=== PATIENT | female | born 1985 | race Caucasian/White ===

== ENCOUNTER 2016-09-08 08:31 | Emergency (ER) | payer BC ==
--- NOTE | 2016-09-08 10:07 | EDDOCDS ---
Nurse's Notes [facility] Name: Roxie Mendosa Age: 31 yrs Sex: Female : 1985 Arrival Date: 09/08/2016 Time: 08:31 Bed TR7 Private MD: Melody Leach Diagnosis: Nondisplaced fracture of shaft of fifth metacarpal bone, left hand Presentation: 09/08 09:01 Presenting complaint: Patient states: injured left hand yesterday - fell on hand while j walking up stairs. today c/o pain in hand - worst over 4th and 5th finger. denies other injuries. Adult Sepsis Screening: The patient does not have new or worsening altered mentation. Patient's respiratory rate is less than 22. Systolic blood pressure is greater than 100. Patient has a qSOFA score of 0- Negative Sepsis Screen. Suicide/Homicide risk assessment- the patient denies having any suicidal and/or homicidal ideations and does not present with any other emotional, behavioral or mental health complaints. 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 Transition of care: patient was not received from another setting of care. 09:01 Acuity: DARYL Level 4 [facility] 09:01 Method Of Arrival: Walkin/Carried/Asstd [facility] Triage Assessment: 09:04 General: Appears in no apparent distress, comfortable, Behavior is appropriate for age, bcj cooperative. Pain: Location: left hand Pain currently is 10 out of 10 on a pain scale. HIV screening NA for this visit Offered previously. Musculoskeletal: Circulation, motion, and sensation intact Capillary refill < 3 seconds in left fingers. 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 Protonix 40 mg Oral TbEC 1 tab once daily - PMHx: GERD; - PSHx: none; - Social history: Smoking status: Patient uses tobacco products, light tobacco smoker. No barriers to communication noted, The patient speaks fluent Syriac, Speaks appropriately for age. - Family history: Not pertinent. - : The pt / caregiver states he / she is not on anticoagulants. Home medication list is obtained from the patient. - Exposure Risk Screening:: None identified. Screenin:48 Screening information is obtained from the patient. Primary language is Syriac. Fall jam1 risk: No risks identified. Assistance ADL's: requires no assistance with activities of daily living. Abuse/DV Screen: The patient / caregiver reports he/she is: not in a situation that causes fear, pain or injury. Nutritional screening: No deficits noted. Exposure Risk Screening: None identified. Advance Directives: Currently, there is no health care proxy. There is no active DNR order. There is no living will. There is no Power of Bleaching Machine Operator. Advance directive information has not previously been placed in an [facility] medical record. Further advance directive information is declined. home support is adequate. Assessment: 09:48 General: Appears in no apparent distress, right hand splinted ( ulnar gutter) by ANDREW Sanchez. 09:57 General: Appears in no apparent distress, Behavior is cooperative. Respiratory: Airway mk4 is patent Respiratory effort is even, unlabored, Respiratory pattern is regular. Musculoskeletal: Circulation, motion, and sensation intact. Vital Signs: 08:47 BP 124 / 79; Pulse 75; Resp 18; Temp 97.3(O); Pulse Ox 97% ; Weight 77.11 kg (R); ct3 Height 5 ft. 3 in. (160.02 cm) (R); Pain 10/10; 09:59 BP 134 / 91; Pulse 72; Resp 18; Temp 98; Pulse Ox 99% on R/A; mk4 08:47 Body Mass Index 30.11 (77.11 kg, 160.02 cm) ct3 Vitals: 09:04 Log In Time: September 08, 2016 at 08:30. [facility] ED Course: 08:33 Patient visited by Dragan Espinoza Reg. pm4 08:33 Melody Leach is Private Physician. pm4 08:33 Patient moved to Waiting pm4 08:46 Patient moved to Pre RCE cmb 08:48 Patient visited by Xiomara Wilder PCA. ct3 08:50 Emanuel Sanchez PA-C is PHCP. ar2 08:50 Janet Rod MD is Attending Physician. ar2 09:01 Patient moved to Triage 3 [facility] 09:03 Triage Initiated bcj 09:05 Patient visited by Brannon Gill RN. bcj 09:08 Patient visited by Emanuel Sanchez PA-C. ar2 09:29 Patient moved to TR1 bcalberto 09:38 Patient moved to I6 kcs 09:39 Patient visited by Renetta Fontenot, RAJIV. mk4 09:48 Pt greeted and oriented to ED. Patient advised of names of staff involved in care, jam1 location of call martinez, wait times and NPO status. Patient has correct armband on for positive identification. Bed in low position. Call light in reach. Side rails up X 1. Door closed. 09:48 The patient / caregiver is instructed regarding the plan of care and ED course. mk4 09:48 No IV's were initiated during this patient's visit. Ulnar gutter splint applied on mk4 right forearm. Patient with positive distal sensation and brisk distal capillary refill after application. 09:48 No procedures done that require assistance. mk4 09:49 Blaine Low is Referral Physician. ar2 09:58 Patient moved to TR7 mk4 Order Results: There are currently no results for this order. Outcome: 09:49 Discharge ordered by Provider. ar2 10:06 Patient left the ED. mk4 Signatures: Tish Stafford, RN RN Brannon Edward, RN RN Neyda Tenorio, MARKET RESEARCH ASSISTANT MARKET RESEARCH ASSISTANT jam1 Emanuel Sanchez PA-C PA-C ar2 Xiomara Wilder, MARKET RESEARCH ASSISTANT MARKET RESEARCH ASSISTANT ct3 Iris Dunn cmb Renetta Fontenot, RAJIV RN mk4 Dragan Espinoza, Reg Reg pm4 MTDD
--- NOTE | 2016-09-08 10:07 | EDDOCDS ---
Physician Documentation [facility] Name: Roxie Mendosa Age: 31 yrs Sex: Female : 1985 Arrival Date: 09/08/2016 Time: 08:31 Bed TR7 Private MD: Melody Leach Disposition: 09/08/16 09:49 Discharged to Home/Self Care. Impression: Nondisplaced fracture of shaft of fifth metacarpal bone, left hand. - Condition is Stable. - Discharge Instructions: Boxer's Fracture, Cast or Splint Care. - Prescriptions for [place] 5- 325 mg Oral Tablet - take 1 tablet by ORAL route every 6 hours As needed MDD: 4 tabs; 20 tablet. - Medication Reconciliation, Local Pharmacy Hours form. - Follow up: Blaine Low; When: Call to arrange an appointment; Reason: Recheck today's complaints. - Problem is new. - Symptoms have improved. Historical: - Allergies: SULFA (SULFONAMIDES) (Hives); PENICILLINS (Hives); Latex (Hives); - Home Meds: 1. Protonix 40 mg Oral TbEC 1 tab once daily - PMHx: GERD; - PSHx: none; - Social history: Smoking status: Patient uses tobacco products, light tobacco smoker. No barriers to communication noted, The patient speaks fluent Luxembourgish, Speaks appropriately for age. - Family history: Not pertinent. - : The pt / caregiver states he / she is not on anticoagulants. Home medication list is obtained from the patient. - Exposure Risk Screening:: None identified. 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 3 in. (160.02 cm) (R); Pain 10/10; 09:59 BP 134 / 91; Pulse 72; Resp 18; Temp 98; Pulse Ox 99% on R/A; mk4 08:47 Body Mass Index 30.11 (77.11 kg, 160.02 cm) ct3 MDM: 09:14 Hand, Complete Ordered. EDMS 09:19 Financial registration complete. lg Signatures: Dispatcher [employer] EDMS Jairo, Brannon, RN RN bcj Brandon Schneider, Reg Reg Emanuel Rodriguez PA-C PATeetee ar2 Renetta Fontenot RN RN mk4 MTDD
--- NOTE | 2016-09-08 14:38 | REP ---
4 View left hand series, 09/08/2016 Indication: Fourth and fifth metacarpal injury, status post fall Findings: Oblique minimally displaced fractures identified involving the shaft of the fifth metacarpal. There is no intra-articular involvement. Remainder of the hand is without acute fracture or dislocation. Carpal bones are intact. Impression: oblique minimally displaced fracture is identified within the shaft of the fifth metacarpal without intra-articular extension. There is mild overlying soft tissue swelling. Signed by Alva Reynolds MD 09/08/2016 10:10 A
--- NOTE | 2016-09-10 11:07 | EDDOCDS ---
Physician Documentation [facility] Name: Roxie Mendosa Age: 31 yrs Sex: Female : 1985 Arrival Date: 09/08/2016 Time: 08:31 Bed TR7 Private MD: Melody Leach Disposition: 09/08/16 09:49 Discharged to Home/Self Care. Impression: Nondisplaced fracture of shaft of fifth metacarpal bone, left hand. - Condition is Stable. - Discharge Instructions: Boxer's Fracture, Cast or Splint Care. - Prescriptions for [place] 5- 325 mg Oral Tablet - take 1 tablet by ORAL route every 6 hours As needed MDD: 4 tabs; 20 tablet. - Medication Reconciliation, Local Pharmacy Hours form. - Follow up: Blaine Low; When: Call to arrange an appointment; Reason: Recheck today's complaints. - Problem is new. - Symptoms have improved. Historical: - Allergies: SULFA (SULFONAMIDES) (Hives); PENICILLINS (Hives); Latex (Hives); - Home Meds: 1. Protonix 40 mg Oral TbEC 1 tab once daily - PMHx: GERD; - PSHx: none; - Social history: Smoking status: Patient uses tobacco products, light tobacco smoker. No barriers to communication noted, The patient speaks fluent Icelandic, Speaks appropriately for age. - Family history: Not pertinent. - : The pt / caregiver states he / she is not on anticoagulants. Home medication list is obtained from the patient. - Exposure Risk Screening:: None identified. 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 3 in. (160.02 cm) (R); Pain 10/10; 09:59 BP 134 / 91; Pulse 72; Resp 18; Temp 98; Pulse Ox 99% on R/A; mk4 08:47 Body Mass Index 30.11 (77.11 kg, 160.02 cm) ct3 MDM: 09:14 Hand, Complete Ordered. EDMS 09:19 Financial registration complete. lg 10:28 [facility] Payment Agreement was scanned into [employer] and attached to record. lg 12:35 T-Sheet-- Draft Copy was scanned into [employer] and attached to record. gb Signatures: Dispatcher [employer] Brannon Motta, RN RN Jina Saravia, Reg Reg gb Brandon Schneider, Reg Reg lg Emanuel Sanchez, PATeetee PATeetee ar2 Renetta Fontenot RN RN mk4 The chart was reviewed and I authenticate all verbal orders and agree with the evaluation and treatment provided.Attachments: 10: [facility] Payment Agreement lg 12:35 T-Sheet-- Draft Copy gb Chart Complete MTDD
--- NOTE | 2016-09-10 11:07 | EDDOCDS ---
Physician Documentation [facility] Name: Roxie Mendosa Age: 31 yrs Sex: Female : 1985 Arrival Date: 09/08/2016 Time: 08:31 Bed TR7 Private MD: Melody Leach Disposition: 09/08/16 09:49 Discharged to Home/Self Care. Impression: Nondisplaced fracture of shaft of fifth metacarpal bone, left hand. - Condition is Stable. - Discharge Instructions: Boxer's Fracture, Cast or Splint Care. - Prescriptions for [place] 5- 325 mg Oral Tablet - take 1 tablet by ORAL route every 6 hours As needed MDD: 4 tabs; 20 tablet. - Medication Reconciliation, Local Pharmacy Hours form. - Follow up: Blaine Low; When: Call to arrange an appointment; Reason: Recheck today's complaints. - Problem is new. - Symptoms have improved. Historical: - Allergies: SULFA (SULFONAMIDES) (Hives); PENICILLINS (Hives); Latex (Hives); - Home Meds: 1. Protonix 40 mg Oral TbEC 1 tab once daily - PMHx: GERD; - PSHx: none; - Social history: Smoking status: Patient uses tobacco products, light tobacco smoker. No barriers to communication noted, The patient speaks fluent Azeri, Speaks appropriately for age. - Family history: Not pertinent. - : The pt / caregiver states he / she is not on anticoagulants. Home medication list is obtained from the patient. - Exposure Risk Screening:: None identified. 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 3 in. (160.02 cm) (R); Pain 10/10; 09:59 BP 134 / 91; Pulse 72; Resp 18; Temp 98; Pulse Ox 99% on R/A; mk4 08:47 Body Mass Index 30.11 (77.11 kg, 160.02 cm) ct3 MDM: 09:14 Hand, Complete Ordered. EDMS 09:19 Financial registration complete. lg 10:28 [facility] Payment Agreement was scanned into [employer] and attached to record. lg 12:35 T-Sheet-- Draft Copy was scanned into [employer] and attached to record. gb Signatures: Dispatcher [employer] Brannon Motta, RN RN Jina Saravia, Reg Reg gb Brandon Schneider, Reg Reg lg Emanuel Sanchez, PATeetee PATeetee ar2 Renetta Fontenot RN RN mk4 The chart was reviewed and I authenticate all verbal orders and agree with the evaluation and treatment provided.Attachments: 10: [facility] Payment Agreement lg 12:35 T-Sheet-- Draft Copy gb Chart Complete MTDD
--- NOTE | 2016-09-10 11:07 | EDDOCDS ---
Nurse's Notes [facility] Name: Roxie Mendosa Age: 31 yrs Sex: Female : 1985 Arrival Date: 09/08/2016 Time: 08:31 Bed TR7 Private MD: Melody Leach Diagnosis: Nondisplaced fracture of shaft of fifth metacarpal bone, left hand Presentation: 09/08 09:01 Presenting complaint: Patient states: injured left hand yesterday - fell on hand while j walking up stairs. today c/o pain in hand - worst over 4th and 5th finger. denies other injuries. Adult Sepsis Screening: The patient does not have new or worsening altered mentation. Patient's respiratory rate is less than 22. Systolic blood pressure is greater than 100. Patient has a qSOFA score of 0- Negative Sepsis Screen. Suicide/Homicide risk assessment- the patient denies having any suicidal and/or homicidal ideations and does not present with any other emotional, behavioral or mental health complaints. Status: Patient is not a managed services sales consultant or dependent. Transition of care: patient was not received from another setting of care. 09:01 Acuity: DARYL Level 4 [facility] 09:01 Method Of Arrival: Walkin/Carried/Asstd [facility] Triage Assessment: 09:04 General: Appears in no apparent distress, comfortable, Behavior is appropriate for age, bcj cooperative. Pain: Location: left hand Pain currently is 10 out of 10 on a pain scale. HIV screening NA for this visit Offered previously. Musculoskeletal: Circulation, motion, and sensation intact Capillary refill < 3 seconds in left fingers. 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 Protonix 40 mg Oral TbEC 1 tab once daily - PMHx: GERD; - PSHx: none; - Social history: Smoking status: Patient uses tobacco products, light tobacco smoker. No barriers to communication noted, The patient speaks fluent Indonesian, Speaks appropriately for age. - Family history: Not pertinent. - : The pt / caregiver states he / she is not on anticoagulants. Home medication list is obtained from the patient. - Exposure Risk Screening:: None identified. Screenin:48 Screening information is obtained from the patient. Primary language is Indonesian. Fall jam1 risk: No risks identified. Assistance ADL's: requires no assistance with activities of daily living. Abuse/DV Screen: The patient / caregiver reports he/she is: not in a situation that causes fear, pain or injury. Nutritional screening: No deficits noted. Exposure Risk Screening: None identified. Advance Directives: Currently, there is no health care proxy. There is no active DNR order. There is no living will. There is no Power of Production Broacher. Advance directive information has not previously been placed in an [facility] medical record. Further advance directive information is declined. home support is adequate. Assessment: 09:48 General: Appears in no apparent distress, right hand splinted ( ulnar gutter) by ANDREW Sanchez. 09:57 General: Appears in no apparent distress, Behavior is cooperative. Respiratory: Airway mk4 is patent Respiratory effort is even, unlabored, Respiratory pattern is regular. Musculoskeletal: Circulation, motion, and sensation intact. Vital Signs: 08:47 BP 124 / 79; Pulse 75; Resp 18; Temp 97.3(O); Pulse Ox 97% ; Weight 77.11 kg (R); ct3 Height 5 ft. 3 in. (160.02 cm) (R); Pain 10/10; 09:59 BP 134 / 91; Pulse 72; Resp 18; Temp 98; Pulse Ox 99% on R/A; mk4 08:47 Body Mass Index 30.11 (77.11 kg, 160.02 cm) ct3 Vitals: 09:04 Log In Time: September 08, 2016 at 08:30. [facility] ED Course: 08:33 Patient visited by Dragan Espinoza Reg. pm4 08:33 Melody Leach is Private Physician. pm4 08:33 Patient moved to Waiting pm4 08:46 Patient moved to Pre RCE cmb 08:48 Patient visited by Xiomara Wilder PCA. ct3 08:50 Emanuel Sanchez PA-C is PHCP. ar2 08:50 Janet Rod MD is Attending Physician. ar2 09:01 Patient moved to Triage 3 [facility] 09:03 Triage Initiated bcj 09:05 Patient visited by Brannon Gill RN. bcj 09:08 Patient visited by Emanuel Sanchez PA-C. ar2 09:29 Patient moved to TR1 bcj 09:38 Patient moved to I6 / kcs 09:39 Patient visited by Renetta Fontenot RN. mk4 09:48 Pt greeted and oriented to ED. Patient advised of names of staff involved in care, jam1 location of call martinez, wait times and NPO status. Patient has correct armband on for positive identification. Bed in low position. Call light in reach. Side rails up X 1. Door closed. 09:48 The patient / caregiver is instructed regarding the plan of care and ED course. mk4 09:48 No IV's were initiated during this patient's visit. Ulnar gutter splint applied on mk4 right forearm. Patient with positive distal sensation and brisk distal capillary refill after application. 09:48 No procedures done that require assistance. mk4 09:49 Blaine Low is Referral Physician. ar2 09:58 Patient moved to TR7 mk4 10:26 Patient name changed from Roxie\S\L\S\Mendosa\S\ to Roxie\S\Jane\S\Mendosa. EDMS 10:28 [facility] Payment Agreement was scanned into [employer] and attached to record. lg 12:35 T-Sheet-- Draft Copy was scanned into [employer] and attached to record. gb 15:07 Hand, Complete Returned. EDMS Order Results: Radiology Order: Hand, Complete Test: Hand, Complete REASON FOR EXAMINATION: 4th, 5th mc; 4 View left hand series, 09/08/2016; ; Indication: Fourth and fifth metacarpal injury, status post fall; ; Findings: Oblique minimally displaced fractures identified involving the shaft; of the fifth metacarpal. There is no intra-articular involvement. Remainder of; the hand is without acute fracture or dislocation. Carpal bones are intact.; ; Impression: oblique minimally displaced fracture is identified within the shaft; of the fifth metacarpal without intra-articular extension. There is mild; overlying soft tissue swelling.; ; ; ; ; Signed by; Alva Reynolds MD 09/08/2016 10:10 A; Outcome: 09:49 Discharge ordered by Provider. ar2 10:06 Patient left the ED. mk4 10:06 Discharge Assessment: Patient awake, alert and oriented x 3. No cognitive and/or mk4 functional deficits noted. Patient verbalized understanding of disposition instructions. Patient awake and alert. patient administered narcotics - no. The following High Risk Discharge criteria are identified: None. Discharged to home ambulatory. Condition: good Condition: stable. No special radiology studies were completed. Property sent home with patient. Signatures: Dispatcher [employer] Tish Beard, Brannon Sloan RN, Neyda Freeman RN, RADIO MAINTAINER RADIO MAINTAINER jam1 Jina Ha, Reg Reg gb Brandon Schneider, Reg Reg lg Emanuel Sanchez, PA-Fzaal PA-C ar2 Xiomara Wilder, RADIO MAINTAINER RADIO MAINTAINER ct3 Iris Dunn Margaret, RN RN mk4 Dragan Espinoza, Reg Reg pm4 Chart Complete MTDD
== END 2016-09-08 10:06 | disposition home or self-care (01) ==
LOC: M ED 08:31
DX: S62.307A Unspecified fracture of fifth metacarpal bone, left hand, initial encounter for closed fracture (principal); W10.9XXA Fall (on) (from) unspecified stairs and steps, initial encounter; Y92.019 Unspecified place in single-family (private) house as the place of occurrence of the external cause; Y93.01 Activity, walking, marching and hiking; Y99.8 Other external cause status; K21.9 Gastro-esophageal reflux disease without esophagitis; F17.210 Nicotine dependence, cigarettes, uncomplicated; Z79.899 Other long term (current) drug therapy; Z88.2 Allergy status to sulfonamides; Z88.0 Allergy status to penicillin; Z91.040 Latex allergy status

== ENCOUNTER → 2018-05-23 | Outpatient (REF) | payer BC | LOC: M LAB REF 16:50 | DX: R20.0 Anesthesia of skin (principal) | CPT/HCPCS: 82607 ==

== ENCOUNTER → 2018-06-29 | Outpatient (CLI) | payer BC ==
[2018-06-29 13:48] LABS: BASO # 0.1 10^3/uL (0.0-0.2); BASO % 0.4 % (0.0-1.0); EOS # 0.2 10^3/uL (0.0-0.50); EOS % 1.1 % (0.0-3.0); HEMATOCRIT 39.4 % (36.0-47.0); HEMOGLOBIN 13.4 g/dl (12.0-15.5); IMMATURE GRANULOCYTE % 0.4 % (0-3.0); MEAN CORPUSCULAR HEMOGLOBIN 32.5 pg (27.0-33.0); MEAN CORPUSCULAR VOLUME 95.6 fl (80.0-96.0); MONO # 0.8 10^3/uL (0.0-0.8); MONO % 5.8 % (0.0-5.0); NEUTROPHILS % 78.3 % (36.0-66.0); PLATELET COUNT, AUTOMATED 331 10^3/uL (150-450); RED BLOOD COUNT 4.12 10^6/uL (4.00-5.40); RED CELL DISTRIBUTION WIDTH 12.6 % (11.5-14.5); WHITE BLOOD COUNT 14.1 10^3/uL (4.0-10.0)
[2018-06-29 13:59] LABS: ALBUMIN/GLOBULIN RATIO 1.29 (1.00-1.93); ALKALINE PHOSPHATASE 81 U/L (45-117); ALT/SGPT 33 U/L (12-78); AMYLASE 36 U/L (25-115); ANION GAP 6 MEQ/L (8-16); AST/SGOT 30 U/L (7-37); BILIRUBIN,TOTAL 0.7 MG/DL (0.2-1.0); BLOOD UREA NITROGEN 13 MG/DL (7-18); CALCIUM LEVEL 9.2 MG/DL (8.5-10.1); CARBON DIOXIDE LEVEL 29 MEQ/L (21-32); CHLORIDE LEVEL 103 MEQ/L (98-107); GLOMERULAR FILTRATION RATE > 60.0 (>60); GLUCOSE, FASTING 114 MG/DL (70-100); LIPASE 159 U/L (73-393); POTASSIUM SERUM 3.8 MEQ/L (3.5-5.1); SODIUM LEVEL 138 MEQ/L (136-145); TOTAL PROTEIN 7.1 GM/DL (6.4-8.2)
== END ==
LOC: M WUC 10:08
DX: R10.30 Lower abdominal pain, unspecified (principal)
CPT/HCPCS: 82150

== ENCOUNTER → 2021-10-14 | Outpatient (CLI) | payer OTHER | LOC: M SLEEP HO 12:06 | PROVIDERS: ATTEND Physician Assistant | DX: G47.33 Obstructive sleep apnea (adult) (pediatric) (principal) ==

== ENCOUNTER 2024-08-06 09:53 | Emergency (ER) | payer OTHER ==
[~2024-08-06] VITALS: Ht 160 cm; Wt 87.5 kg
[2024-08-06] MEDS: ONDANSETRON 4MG 2ML VIAL IV ONE (11:24)
[2024-08-06] MEDS: MORPHINE 2 MG/ML 1ML VIAL IV ONE ×2 (11:25→13:01)
[2024-08-06] MEDS: LIDOCAINE 1% MDV 20ML VIAL IM ONE (11:25)
[2024-08-06 11:26] LABS: BASO # 0.1 10^3/uL (0.0-0.2); BASO % 0.6 % (0.0-1.0); EOS # 0.2 10^3/uL (0.0-0.5); EOS % 1.8 % (0.0-3.0); HEMATOCRIT 42.9 % (36.0-47.0); HEMOGLOBIN 14.4 g/dl (12.0-15.5); LYMPH # 1.6 10^3/uL (1.5-5.0); LYMPH % 14.5 % (24.0-44.0); MEAN CORPUSCULAR HEMOGLOBIN 33.2 pg (27.0-33.0); MEAN CORPUSCULAR HGB CONC 33.6 g/dl (32.0-36.5); MEAN CORPUSCULAR VOLUME 98.8 fl (80.0-96.0); MONO # 0.7 10^3/uL (0.0-0.8); MONO % 6.2 % (2.0-8.0); NEUTROPHILS # 8.6 10^3/uL (1.5-8.5); NEUTROPHILS % 76.5 % (36.0-66.0); PLATELET COUNT, AUTOMATED 313 10^3/uL (150-450); RED BLOOD COUNT 4.34 10^6/uL (4.00-5.40); WHITE BLOOD COUNT 11.2 10^3/uL (4.0-10.0)
[2024-08-06] MEDS: CLINDAMYCIN 900 MG in IV 1 EA IV ONE (11:35)
[2024-08-06 11:52] LABS: BLOOD UREA NITROGEN 6 MG/DL (9-23); CALCIUM LEVEL 9.5 MG/DL (8.5-10.1); CARBON DIOXIDE LEVEL 26 MMOL/L (20-31); CHLORIDE LEVEL 103 MMOL/L (98-107); CREATININE FOR GFR 0.53 MG/DL (0.55-1.30); GLOMERULAR FILTRATION RATE > 60.0 (>58); GLUCOSE, FASTING 94 MG/DL (60-100); POTASSIUM SERUM 4.1 MMOL/L (3.5-5.1); SODIUM LEVEL 137 MMOL/L (136-145)
[2024-08-06] MEDS ORDERED: ISOVUE-370 76% 100ML VIAL As Ordered ONE (12:25)
[2024-08-06] MEDS ORDERED: CLEO300C2 PO (14:20)
[2024-08-06 14:35] VITALS: BP 152/78; TEMP 98.3; O2SAT 97
== END 2024-08-06 14:37 | disposition home or self-care (01) ==
LOC: M ED 09:53 → EEVIPCON 09:53 → M ED 14:37
DX: L02.214 Cutaneous abscess of groin (principal); F17.200 Nicotine dependence, unspecified, uncomplicated; Z88.0 Allergy status to penicillin; Z88.2 Allergy status to sulfonamides; Z91.040 Latex allergy status
CPT/HCPCS: 36415; 72193; 80048; 83605; 85025; 87040; 87070; 87077; 87205; 99284; J0737; J2405; Q9967